=== PATIENT | female | born 1955 | race Caucasian/White ===

== ENCOUNTER → 2016-03-23 | Outpatient (CLI) | payer BC ==
[~2016-03-23] MED LIST: ACIPHEX20 MG PO; CELEBREX200 MG PO; CELEXA10 MG PO; CRESTOR10 MG PO; CRESTOR20 MG PO; DILAUDID2 MG PO; DIOVAN80 MG PO; DOCUSATE SODIU100 MG PO; GABAPENTIN300 MG PO; LO-DOSE ASPIRIN81 M1 PO; LOPID600 MG PO; LORTAB 5-325 M1 EACH PO; MOTRIN600 MG PO; OXYCODONE-APAP1 EACH PO; PAMELOR25 MG PO; PERCOCET 5/31 TABLET PO; SKELAXIN800 MG PO; TESSALON200 MG PO; TRAMADOL HCL50 MG PO; ZOFRAN ODT4 MG PO
== END | disposition home or self-care (01) ==
LOC: NUC 08:34
DX: R94.8 Abnormal results of function studies of other organs and systems (principal); R11.2 Nausea with vomiting, unspecified
CPT/HCPCS: 78264; A9541

== ENCOUNTER 2016-10-25 08:26 | Day surgery (SDC) | payer BC ==
[~2016-10-25] VITALS: Ht 170.2 cm; Wt 70.5 kg
[~2016-10-25 08:26] MED LIST changes: +GEMFIBROZIL600 MG PO; +ZANAFLEX2 M1 PO
== END 2016-10-25 10:12 | disposition home or self-care (01) ==
LOC: PAIN 08:26 → SDC 09:15 → PAIN 09:15
DX: M47.22 Other spondylosis with radiculopathy, cervical region (principal); G89.29 Other chronic pain; R51 Headache; E78.5 Hyperlipidemia, unspecified; K21.9 Gastro-esophageal reflux disease without esophagitis; I10 Essential (primary) hypertension; Z79.82 Long term (current) use of aspirin; Z88.8 Allergy status to other drugs, medicaments and biological substances
CPT/HCPCS: J1030; J2250; J2405; J3010; S0020

== ENCOUNTER 2016-11-01 09:14 | Day surgery (SDC) | payer BC ==
[~2016-11-01] VITALS: Ht 171.4 cm; Wt 68.0 kg
== END 2016-11-01 10:55 | disposition home or self-care (01) ==
LOC: PAIN 09:14 → SDC 10:00 → PAIN 10:00
DX: M47.22 Other spondylosis with radiculopathy, cervical region (principal); M54.2 Cervicalgia; G89.29 Other chronic pain; Z79.82 Long term (current) use of aspirin; K21.9 Gastro-esophageal reflux disease without esophagitis; I10 Essential (primary) hypertension; E78.1 Pure hyperglyceridemia
CPT/HCPCS: J1030; J2250; J2405; J3010; S0020

== ENCOUNTER 2017-01-22 08:53 | Day surgery (SDC) | payer BC ==
[~2017-01-22] VITALS: Ht 171.4 cm; Wt 63.5 kg
[~2017-01-22 08:53] MED LIST changes: +PROTONIX40 MG PO
== END 2017-01-22 10:20 | disposition home or self-care (01) ==
LOC: PAIN 08:53 → SDC 09:45 → PAIN 09:45
DX: M47.22 Other spondylosis with radiculopathy, cervical region (principal); M54.2 Cervicalgia; G89.29 Other chronic pain; I10 Essential (primary) hypertension; E78.5 Hyperlipidemia, unspecified; E04.0 Nontoxic diffuse goiter; Z79.82 Long term (current) use of aspirin; R51 Headache; F41.9 Anxiety disorder, unspecified; K21.9 Gastro-esophageal reflux disease without esophagitis
CPT/HCPCS: J1030; J2250; J2405; J3010; S0020

== ENCOUNTER 2017-01-29 08:38 | Day surgery (SDC) | payer BC ==
[~2017-01-29] VITALS: Ht 171.4 cm; Wt 63.5 kg
== END 2017-01-29 10:30 | disposition home or self-care (01) ==
LOC: PAIN 08:38 → SDC 09:45 → PAIN 10:30
DX: M47.812 Spondylosis without myelopathy or radiculopathy, cervical region (principal); M54.2 Cervicalgia; G89.29 Other chronic pain; K21.9 Gastro-esophageal reflux disease without esophagitis; E78.00 Pure hypercholesterolemia, unspecified; I10 Essential (primary) hypertension; R00.0 Tachycardia, unspecified; Z79.82 Long term (current) use of aspirin; Z79.891 Long term (current) use of opiate analgesic
CPT/HCPCS: J1030; J2250; J3010; S0020

== ENCOUNTER → 2017-05-03 | Outpatient (CLI) | payer BC ==
[~2017-05-03] VITALS: Ht 171.4 cm; Wt 63.5 kg
== END | disposition home or self-care (01) ==
LOC: AMB 04-19 10:00
PROC: 0DB68ZX Excision of Stomach, Via Natural or Artificial Opening Endoscopic, Diagnostic (ICD-10-PCS; principal; 2017-05-03)
DX: K29.70 Gastritis, unspecified, without bleeding (principal); K44.9 Diaphragmatic hernia without obstruction or gangrene; K21.9 Gastro-esophageal reflux disease without esophagitis; E78.00 Pure hypercholesterolemia, unspecified; E78.5 Hyperlipidemia, unspecified; E78.1 Pure hyperglyceridemia; I10 Essential (primary) hypertension; R73.09 Other abnormal glucose; E04.1 Nontoxic single thyroid nodule; M19.90 Unspecified osteoarthritis, unspecified site; E55.9 Vitamin D deficiency, unspecified; Z79.82 Long term (current) use of aspirin; Z82.49 Family history of ischemic heart disease and other diseases of the circulatory system; Z83.3 Family history of diabetes mellitus; Z88.8 Allergy status to other drugs, medicaments and biological substances
CPT/HCPCS: 88305; 88342 TC; 93005